=== PATIENT | male | born 1960 | race Caucasian/White ===

== ENCOUNTER 2016-07-30 00:03 | Emergency (ER) | payer MEDICAID ==
--- NOTE | 2016-07-30 00:08 | ED Physician Chart ---
Chief Complaint/HPI - Patient Information Date Seen:: 07/30/16 Time Seen:: 00:05 Chief Complaint:: nausea and vomiting History of Present Illness:: 55-year-old male, brought in by ambulance, history of migraine headaches, complains of acute, constant, moderate to severe, nausea and vomiting times one day. Has associated headache and aching and cramping stomach area that he says is because of the vomiting and retching. Denies fevers. Thinks that he may have ate some bad food. Historian:: Patient, EMS Review:: Nurse's Note Reviewed, EMS run form Reviewed Review of Systems - Review of Systems Other: Complete system review otherwise unremarkable except as noted in HPI. Past Medical History - Past Medical History Past Medical History: HTN, Other (history of migraines) Family History: None Social History: Non Smoker, No Alcohol, No Drug Use, Homeless Surgical History: None Psychiatricy History: None Medication: None Family Medical History - Family Member Father History Unknown: Yes Ethnicity: Non- Mother History Unknown: Yes Physical Exam - Physical Examination Other:: INITIAL VITAL SIGNS: Reviewed by me GENERAL: Alert and interactive. No acute distress HEAD: Head is normocephalic and atraumatic EYES: EOMI. . No scleral icterus. No conjunctival injection ENT: Moist mucous membranes. NECK: Supple. No masses. Full range of motion RESPIRATORY: No tachypnea. Clear breath sounds bilaterally. No wheezing, rales, or rhonchi CV: Regular rate and rhythm. No murmurs, rubs, or gallops ABDOMEN: Soft, non-distended, non-tender. No guarding. No rebound. No masses. EXTREMITIES: No deformity. No cyanosis. No edema. SKIN: Warm and dry. No obvious rashes. NEUROLOGIC: Alert and oriented. Face is symmetric. Speech is normal. Moves all extremities equally. Motor and sensory distally intact. Labs/Radiology/EKG Results - Lab Results Results: Lab Results 07/30/16 07/30/16 Range/Units 00:40 00:40 WBC 8.2 (4.8-10.8) Th/cmm RBC 4.65 (4.30-5.70) Mil/cmm Hgb 13.3 (13.2-17.3) gm/dL Hct 38.5 L (39.0-49.0) % MCV 82.8 (80-99) fl MCH 28.7 (26.0-30.0) pg MCHC Differential 34.7 (28.0-36.0) pg RDW 11.9 (11.5-20.0) % Plt Count 238 (150-400) Th/cmm MPV 7.2 fl Band Neutrophils % 4 (0-10) % Neutrophils (Manual) 88 H (40-80) % Lymphocytes 4 L (20-50) % Monocytes 4 (2-10) % Eosinophils 0 (0-5) % Basophils 0 (0-3) % Platelet Estimate ADEQUATE (NORMAL) Platelet Morphology NORMAL (NORMAL) RBC Morph Micro Appear NORMAL (NORMAL) Sodium 138 (136-145) mEq/L Potassium 3.8 (3.5-5.1) mEq/L Chloride 109 H (98-107) mEq/L Carbon Dioxide 20.6 L (21.0-31.0) mEq/L Anion Gap 12.2 (7.0-16.0) BUN 30 H (7-25) mg/dL Creatinine 1.2 (0.7-1.3) mg/dL Est GFR ( Amer) > 60.0 ml/min Est GFR (Non-Af Amer) > 60.0 ml/min BUN/Creatinine Ratio 25.0 Glucose 178 H (70-105) mg/dL Calcium 8.9 (8.6-10.3) mg/dL Total Bilirubin 1.4 H (0.3-1.0) mg/dL AST 12 L (13-39) U/L ALT 11 (7-52) U/L Alkaline Phosphatase 37 (34-104) U/L Total Protein 5.9 L (6.0-8.3) gm/dL Albumin 3.7 L (4.2-5.5) gm/dL Globulin 2.2 gm/dL Albumin/Globulin Ratio 1.7 (1.0-1.8) Lipase 6 L (11-82) U/L ED Septic Shock - . Is Septic Shock (SBP<90, OR Lactate>4 mmol\L) present?: No Reassessment (Disposition) - Reassessment Reassessment:: Patient appears to have acute gastroenteritis. Received IV fluids IV antiemetics and IV analgesics. Patient felt much improved. Was anxious to get back to the nursing home to get his belongings. Recommended follow-up with PCP in one to 2 days. Gave return to ER precautions. Patient says he understands and agrees with the plan. Reassessment Condition:: Improved - Diagnosis Diagnosis:: Acute gastroenteritis Hypertension - Aftercare/Follow up Instructions Aftercare/Follow-Up Instructions:: Counseled pt regarding lab results/diagnosis & need follow up, Refer to Discharge Instructions Medication Prescribed:: Zofran - Patient Disposition Discharge/Transfer:: Home Time:: 01:20 Condition at Disposition:: Improved ED Discharge Plan - Patient Disposition Admit/Discharge/Transfer: PT DISCHARGED HOME Condition at Disposition: Improved Instructions: Viral Gastroenteritis, [id number]
[2016-07-30] MEDS ORDERED: Prochlorperazine 5 mg/mL 2mL Vial ONE (00:13)
[2016-07-30] MEDS ORDERED: Prochlorperazine 5 mg/mL 2mL Vial IVP STA (00:14)
[2016-07-30] MEDS ORDERED: Dexamethasone Sodium Phos 10 mg/mL PF Vial ONE (00:15)
[2016-07-30] MEDS ORDERED: Dexamethasone Sodium Phos 4 mg/mL Vial IVP STA (00:15)
[2016-07-30] MEDS ORDERED: Sodium Chloride 0.9% 1,000 ML IV ONE (00:15)
[2016-07-30 00:50] LABS: RED CELL DISTRIBUTION WIDTH 11.9 % (11.5-20.0)
[2016-07-30 00:55] LABS: HEMATOCRIT 38.5 % (39.0-49.0); HEMOGLOBIN 13.3 gm/dL (13.2-17.3); MEAN CELL VOLUME 82.8 fl (80-99); MEAN CORPUSCULAR HEMOGLOBIN 28.7 pg (26.0-30.0); MEAN CORPUSCULAR HGB CONC 34.7 pg (28.0-36.0); MEAN PLATELET VOLUME 7.2 fl; PLATELET COUNT 238 Th/cmm (150-400); RED BLOOD COUNT 4.65 Mil/cmm (4.30-5.70); WHITE BLOOD COUNT 8.2 Th/cmm (4.8-10.8)
[2016-07-30 01:05] LABS: ALB/GLOB RATIO 1.7 (1.0-1.8); ALKALINE PHOSPHATASE 37 U/L (34-104); ANION GAP 12.2 (7.0-16.0); BILIRUBIN,TOTAL 1.4 mg/dL (0.3-1.0); BUN - UREA NITROGEN 30 mg/dL (7-25); CALCIUM SERUM 8.9 mg/dL (8.6-10.3); CARBON DIOXIDE 20.6 mEq/L (21.0-31.0); CHLORIDE 109 mEq/L (98-107); CREATININE - SERUM 1.2 mg/dL (0.7-1.3); GLUCOSE 178 mg/dL (70-105); LIPASE 6 U/L (11-82); POTASSIUM SERUM 3.8 mEq/L (3.5-5.1); SGOT 12 U/L (13-39); SGPT/ALT 11 U/L (7-52); SODIUM SERUM 138 mEq/L (136-145)
[2016-07-30 01:16] LABS: BAND NEUTROPHILE 4 % (0-10); BASOPHIL 0 % (0-3); EOSINOPHIL 0 % (0-5); NEUTROPHILS 88 % (40-80); PLATELET ESTIMATE ADEQUATE (NORMAL); PLATELET MORPHOLOGY NORMAL (NORMAL); TOTAL CELLS COUNTED 100
== END 2016-07-30 01:25 | disposition home or self-care (01) ==
LOC: ER 00:03
DX: K52.9 Noninfective gastroenteritis and colitis, unspecified (principal); I10 Essential (primary) hypertension; Z88.0 Allergy status to penicillin
CPT/HCPCS: 99284; 96374; 96375; 36415; 85007; 85027; 83690; 80053; J2405; J0780; J7030; Z7502